=== PATIENT | female | born 1990 | race Caucasian/White ===

== ENCOUNTER 2019-03-18 11:35 | Inpatient (IN) | payer BC ==
[2019-03-18] MEDS ORDERED: Buffered Lidocaine 1% SYRIN* 1 ML/SYRINGE INTRADERM ONE (12:44)
[2019-03-18] MEDS ORDERED: Lactated Ringers 1000 ML Bag* 1,000 ML IV ONE ×2 (12:44→16:30)
[2019-03-18] MEDS ORDERED: ceFAZolin 2 GM PREMIX in ORs 2 GM/50 ML BAG IVPB ONE (12:45)
--- NOTE | 2019-03-18 12:49 | HP ---
General Information - Reason for Visit Contractions since 0200 today, increasing in strength, frequency. Also notes bloody show today. - General Information Maternal Age: 28 Grav: 2 Para: 0 SAB: 1 IEA: 0 Estimated Due Date: 03/15/19 Determined By: LMP Maternal Blood Type and Rh: O Positive - Results this Serology/RPR Result: Non-Reactive Rubella Result: Non-Immune HBsAg Result: Negative HIV Result: Negative GBS Culture Result: Positive Past Medical History Delivery History: See Records - No previous term pregnancies Pertinent Past Medical History: See Records - HTN as a child Pertinent Past Surgical History: None Pertinent Family History: See Records Family History Comment: Mother with pre-e one Parkinsons Alzheimer's Asberger's - Antepartal Records Antepartal Records: Reviewed, Complicated by: - GBS positive with PCN allergy Review of Systems Constitutional: Uncomfortable CV Complaint: No Respiratory: Shortness of Breath: No Gastrointestinal: No Nausea/Vomiting, Soft Stool Genitourinary: No Leaking Fluid, Spotting Musculoskeletal: Contractions Neurological: No Headache, No Visual Changes Movement: Normal Exam Allergies/Adverse Reactions: Allergies Penicillins Allergy (Verified 03/18/19 12:07) Rash VSS, afebrile - Measurements Height: 5 ft 4 in Weight: 180 lb Weight in lbs: 180.856411 Body Mass Index (BMI): 30.9 Pre- Weight: 142 lb Weight Gained This : 38 lbs and 0 ozs - Exam Breast: Breast Exam Deferred CVA: No CVA Tenderness Extremities: No Edema Heart: Normal Rhythm/Heart Sounds HEENT: No Significant Findings Lungs: Clear Bilaterally Rectal: Rectal Exam Deferred Reflexes: DTR 2+, - - no clonus Thyroid: No Thyromegaly - Abdominal Exam Abdomen Exam: Non-Tender, Fundal Height Consistent with Dates - Ultrasound/Biophysical Profile Ultrasound Status: Not Done Targeted Exam Findings Estimated Weight: 7.5-8lb Cervical Exam: 3cm Effacement: 90% Station: -1 Presenting Part: Vertex Membrane Status: Intact Bleeding/Discharge: Bloody Show EFM Findings - External Monitor Findings Baseline Heart Rate: 130 External Monitor Findings: Accelerations Present, No Pattern of Variable or Late Decelerations, Variability Moderate Contractions: Regular, Moderate, 45-90 Seconds Contraction Frequency: Q 4-5 min Assessment/Plan - Assessment IUP @ 40+3 weeks gestation in early labor. IBOW. No evidence metabolic acidemia - Obstetrical Risk Factors Obstetrical Risk Factors: GBS Positive - Plan Plan: Admit - Anticipate Vaginal Delivery Plan Comment: Admit to L&D. Will initiate IV and start GBS prophylaxis. Patient considering epidural but will start with tub for now. Anticipate SVB. - Date/Time of Admission Date of Admission: 03/18/19 Time of Admission: 12:38
[2019-03-18] MEDS ORDERED: Lactated Ringers 1000 ML Bag* 1,000 ML IV SCH ×2 (13:00→17:00)
[2019-03-18 13:38] LABS: ABS Lymphocytes 1.3 10^3/ul (1.0-4.8); ABS Monocytes 0.5 10^3/ul (0-0.8); ABS Neutrophils 6.6 10^3/ul (1.5-7.7); Eosinophil % 0.2 %; Hematocrit 39 % (35-47); Hemoglobin 13.5 g/dL (12.0-16.0); Lymphocyte % 15.3 %; Mean Corpuscular HGB Conc 34 g/dL (31-36); Mean Corpuscular Hemoglobin 31 pg (27-31); Mean Corpuscular Volume 91 fL (80-97); Mean Platelet Volume 9.6 fL (7.4-10.4); Platelet Count 179 10^3/uL (150-450); Red Blood Count 4.32 10^6 /uL (3.70-4.87); Red Cell Distribution Width 14 % (10.5-15); White Blood Count 8.4 10^3/uL (3.5-10.8)
[2019-03-18] MEDS ORDERED: OBEPIDURAL* 250 ML EPIDURAL ONE (15:50)
--- NOTE | 2019-03-18 16:08 | PN ---
Progress Note - Progress Note Date of Service: 03/18/19 Note: S: Patient on yoga ball next to bed. Reports increasing intensity of contractions and would like to discuss pain medication and have cervical check. O: VE 5cm/100/vtx -1 FHT: 135 via doppler UCs q 3-5 min, strong A: IUP in active labor IBOW No evidence metabolic acidemia P: PARQ discussion medications for pain management including nitrous vs epidural. Patient desire epidural. Questions answered and anesthesia aware and headed to unit.
[2019-03-18] MEDS ORDERED: EPHEDrine (Pressors)* 50 MG/ML VIAL IV PUSH PRN ×2 (16:30)
[2019-03-18] MEDS ORDERED: Famotidine TAB* 20 MG PO PRN (16:30)
[2019-03-18] MEDS ORDERED: Sodium Citrate/Citric Acid* 15 ML UDC PO PRN (16:30)
[2019-03-18] MEDS ORDERED: Phenylephrine 40 MCG/ML SYRINGE IV PUSH PRN ×2 (16:30)
--- NOTE | 2019-03-18 18:11 | PN ---
Progress Note - Progress Note Date of Service: 03/18/19 Note: S: Patient comfortable with epidural O: VE deferred FHT 130, +accels, no decels, mod bhavya UCs q 5-6 min VSS, afebrile A: IUP in active labor No evidence acidemia P: Continue position changes. PARQ discussion regarding pitocin augmentation if contraction pattern not increasing. Patient would like to re assess after shift change @ 7pm. Can consider AROM as well.
--- NOTE | 2019-03-18 19:47 | PN ---
Progress Note - Progress Note Date of Service: 03/18/19 Note: S: Patient comfortable, changing positions side to side and upright. Feels small amount of pressure low in pelvis with contractions. O: VE 7cm/100/0 FHT 135, +accels, no decels, mod bhavya Contractions not tracing, patient reports may be as frequent as Q 3 min VSS, afebrile A: IUP in active labor GBS positive, prophylaxis given No evidence metabolic acidemia P: PARQ discussion of AROM, patients in agreement. Small amount clear blood- tinged fluid. Plan to change toco to get better assessment of contraction pattern. May still consider pitocin augmentation. Anticipate SVB.
[2019-03-18] MEDS ORDERED: Ondansetron INJ* 2 MG/ML VIAL IV PRN (20:33)
[2019-03-18] MEDS: ceFAZolin 1 GM ADVAN(*) 1 GM in NS 0.9% 50 ML* 50 ML IVPB SCH (20:47)
--- NOTE | 2019-03-19 00:05 | PN ---
Progress Note - Progress Note Date of Service: 03/18/19 Note: S: Patient reports feeling more pressure, would like VE. O: VE 9cm, ant lip/100/0 FHT 135, no decels, +accels, mod bhavya 123/67, T 99.0 UCs q 2-3 min Leaking clear fluid A: IUP in active labor Cat 1 FHT GBS P: Encouraged rest/sleep, position changes, use of peanut ball for positioning.
[2019-03-19] MEDS ORDERED: Oxytocin in LR* 0 UNITS/0 ML BAG IVPB ONE (02:45)
[2019-03-19] MEDS ORDERED: Glycerin ADULT SUPP PR PRN (04:25)
[2019-03-19] MEDS ORDERED: Acetaminophen TAB* 325 MG PO PRN (04:25)
[2019-03-19] MEDS ORDERED: Dibucaine 1% 28.35 GM TUBE PR PRN (04:25)
[2019-03-19] MEDS ORDERED: Witch Hazel PAD* JAR TOPICAL PRN (04:25)
[2019-03-19] MEDS ORDERED: Measles, Mumps,Rubella VACC* 0.5 ML/VIAL SUBCUT ONE (04:25)
--- NOTE | 2019-03-19 04:44 | PROCNOTE ---
[facility] OB: Delivery Note - Delivery A Date of : 03/19/19 Time of : 04:02 [place] Sex: Female Score 1 Minute: 9 Score 5 Minutes: 9 Gestational Age in Weeks and Days at Delivery: 40 Weeks and 4 Days Delivery Method: Spontaneous Vaginal Labor: Spontaneous Did Patient attempt ?: N/A, No Previous Amniotic Fluid: Clear Estimated Blood Loss: 350 Anesthesia/Analgesia: CEI for Labor Delivered By: Ngozi Child - Nursery Level of Nursery: Regular/Bedside - Perineum Perineal Injury: Abrasion Only - Not Repaired Perineal Injury Comment: Small perineal and bilat labial abrasions, hemostatic Perineal Repair: None - Events Delivery Events of Note: Supplemental O2 to Mother, Full Course of Antibiotics - Additional Delivery Notes Additional Delivery Notes: Patient admitted in early labor with steady progression to active labor. Received epidural as desired and got good pain relief. Continued to progress to anterior lip. Lip iced and then reduced during pushing. LOL 18'40", pushed 1 hr 18 min. Baby born OA to ERIK with loose nuchal unwrapped after delivery @ 0402. Anterior arm quickly followed head and baby delivered to maternal abdomen with spontaneous cry and HR >110. Terminal meconium noted. Cord doubly clamped and cut by FOB once pulsations ceased. Placenta delivered Geremias with gentle cord traction @ 0410. Fundus firm to massage, no bleeding noted. Total EBL 350ml. Small perineal and bilateral labial abrasions, all hemostatic and not repaired. Baby at breast to initiate . Both mother and baby stable. Baby name Mariam Aguillon. Weight pending.
[2019-03-19] MEDS: ceFAZolin 1 GM ADVAN(*) 1 GM in NS 0.9% 50 ML* 50 ML IVPB SCH (04:45)
[2019-03-19] MEDS ORDERED: Lactated Ringers 1000 ML Bag* 1,000 ML IV SCH (05:00)
[2019-03-19] MEDS: Ibuprofen TAB* 600 MG PO PRN ×3 (07:35→19:58)
[2019-03-19] MEDS: Docusate CAP* 100 MG PO SCH ×3 (07:36→19:58)
[2019-03-20 06:28] LABS: ABS Eosinophils 0.1 10^3/ul (0-0.6); ABS Lymphocytes 1.8 10^3/ul (1.0-4.8); ABS Monocytes 0.6 10^3/ul (0-0.8); ABS Neutrophils 5.8 10^3/ul (1.5-7.7); Eosinophil % 1.2 %; Hematocrit 31 % (35-47); Hemoglobin 10.8 g/dL (12.0-16.0); Lymphocyte % 21.4 %; Mean Corpuscular HGB Conc 35 g/dL (31-36); Mean Corpuscular Hemoglobin 32 pg (27-31); Mean Corpuscular Volume 91 fL (80-97); Mean Platelet Volume 9.2 fL (7.4-10.4); Platelet Count 142 10^3/uL (150-450); Red Blood Count 3.42 10^6 /uL (3.70-4.87); Red Cell Distribution Width 13 % (10.5-15); White Blood Count 8.3 10^3/uL (3.5-10.8)
[2019-03-20] MEDS: Docusate CAP* 100 MG PO SCH ×3 (08:07→21:06)
[2019-03-20] MEDS: Ferrous Gluconate TAB* 324 MG TAB PO SCH ×2 (21:31→21:32)
[2019-03-20] MEDS: ceFAZolin 1 GM ADVAN(*) 1 GM in NS 0.9% 50 ML* 50 ML IVPB SCH (21:32)
[2019-03-20] MEDS: OBEPIDURAL* 250 ML EPIDURAL SCH ×2 (21:33→21:34)
[2019-03-21] MEDS: Docusate CAP* 100 MG PO SCH (08:42)
[2019-03-21 09:24] VITALS: BP 123/69
== END 2019-03-21 11:37 | disposition home or self-care (01) | DRG 560 ==
LOC: MCHOBOUT 11:35 → MCHOB 12:38
PROVIDERS: ADMIT Midwife; ATTEND Midwife
PROC: 10E0XZZ Delivery of Products of Conception, External Approach (ICD-10-PCS; principal; 2019-03-18)
PROC: 4A1HXCZ Monitoring of Products of Conception, Cardiac Rate, External Approach (ICD-10-PCS; 2019-03-18)
PROC: 10907ZC Drainage of Amniotic Fluid, Therapeutic from Products of Conception, Via Natural or Artificial Opening (ICD-10-PCS; 2019-03-18)
DX: O48.0 Post-term pregnancy (principal); Z37.0 Single live birth; O99.824 Streptococcus B carrier state complicating childbirth; O69.81X0 Labor and delivery complicated by cord around neck, without compression, not applicable or unspecified; Z88.0 Allergy status to penicillin; Z3A.40 40 weeks gestation of pregnancy; O77.0 Labor and delivery complicated by meconium in amniotic fluid; O70.0 First degree perineal laceration during delivery
CPT/HCPCS: 36415; 85025; 86850; 86900; 86901; 90707; A9270-GY; J0690; J2405